=== PATIENT | female | born 1975 | race Caucasian/White ===

== ENCOUNTER 2023-12-22 11:53 | Emergency (ER) | payer MEDICAID ==
[~2023-12-22] VITALS: Ht 165.1 cm; Wt 82.5 kg
[2023-12-22 12:10] VITALS: BP 182/91; PULSE 89; RESP 18; O2SAT 98
[2023-12-22 14:12] LABS: HIV ANTIBODY 1&2 RAPID NON-REACTIVE (Neg)
[2023-12-22 14:41] LABS: BILIRUBIN,URINE NEGATIVE (Neg); CLARITY,URINE SLIGHTLY CLOUDY (Clear); COLOR,URINE YELLOW (Yellow); GLUCOSE, URINE NEGATIVE (Neg); KETONES,URINE NEGATIVE (Neg); LEUKOCYTE ESTERASE ,URINE NEGATIVE (Neg); NITRITES, URINE NEGATIVE (Neg); OCCULT BLOOD,URINE TRACE-INTACT (Neg); PROTEIN,URINE NEGATIVE (Neg); UROBILINOGEN,URINE 0.2 E.U/dL (0.2-1.0)
[2023-12-22 14:47] LABS: UA COLLECTION TYPE NON-SPECIFIED
[2023-12-22 14:48] LABS: HYALINE CASTS 0-3 /LPF (NEGATIVE); MUCUS STRANDS MANY /LPF (Neg); SQUAMOUS EPITHELIAL CELL,UR MANY /LPF (FEW)
[2023-12-22 14:49] LABS: BACTERIA,URINE FEW /HPF (Neg); WBC,URINE 0-4 /HPF (0-4)
[2023-12-22 14:50] LABS: TRANSITIONAL EPI CELLS,URINE FEW /HPF
[2023-12-22 18:48] VITALS: TEMP 97.8
[2023-12-24 11:30] LABS: HBSAG SCREEN Negative (Negative); HEP A AB, IGM Negative (Negative); HEP B CORE AB, IGM Negative (Negative); HEPATITIS C VIRUS ANTIBODY Non Reactive (Non Reactive)
[2023-12-24 18:06] LABS: CHLAMYDIA TRACHOMATIS, NAA Negative (Negative)
== END 2023-12-22 18:55 | disposition home or self-care (01) ==
LOC: ER 11:55
DX: Z11.3 Encounter for screening for infections with a predominantly sexual mode of transmission (principal)
CPT/HCPCS: 36415; 80074; 81001; 86703; 87491; 99283

== ENCOUNTER 2024-02-23 06:47 | Emergency (ER) | payer MEDICAID ==
[~2024-02-23] VITALS: Ht 165.1 cm; Wt 75.0 kg
[2024-02-23 07:13] LABS: BASOPHILS % (AUTO) 0.6 % (0-1); EOSINOPHILS # (AUTO) 0.2 X10'3 (0-0.9); EOSINOPHILS % (AUTO) 2.7 % (0-6); HEMATOCRIT 34.5 % (35.0-45.0); HEMOGLOBIN 11.7 g/dl (12.0-16.0); LYMPHOCYTES # (AUTO) 1.4 X10'3 (1.1-4.8); LYMPHOCYTES % (AUTO) 25.3 % (21-51); MEAN CORPUSCULAR HEMOGLOBIN 27.5 PG (27.0-31.0); MEAN CORPUSCULAR HGB CONC 33.9 g/dL (33.0-36.5); MEAN CORPUSCULAR VOLUME 81.2 FL (78-98); MEAN PLATELET VOLUME 7.1 FL (7.4-10.4); MONOCYTES # (AUTO) 0.5 X10'3 (0-0.9); NEUTROPHILS # (AUTO) 3.6 X10'3 (1.8-7.7); NEUTROPHILS % (AUTO) 63.4 % (42-75); PLATELET COUNT 298 X10'3 (140-440); RED BLOOD COUNT 4.25 X10'6 (4.20-5.60); RED CELL DISTRIBUTION WIDTH 14.5 % (11.5-14.5); WHITE BLOOD COUNT 5.7 X10'3 (4.5-11.0)
[2024-02-23] MEDS: ketorolac tromethamine 15mg/ml inj. IV ONE (07:26)
[2024-02-23 07:29] LABS: ALANINE AMINOTRANSFERASE 31 U/L (12-78); ALBUMIN 3.7 G/DL (3.4-5.0); ALKALINE PHOSPHATASE 53 IU/L (46-116); ANION GAP 8 (8-16); ASPARTATE AMINO TRANSFERASE 24 U/L (10-37); BILIRUBIN,TOTAL 0.2 MG/DL (0.1-1.0); BLOOD UREA NITROGEN 19 MG/DL (7-18); BUN/CREATININE RATIO 17.6 (10.0-20.0); CALCIUM 8.8 MG/DL (8.5-10.1); CHLORIDE 106 MMOL/L (99-107); CREATININE 1.08 MG/DL (0.40-0.90); GLUCOSE 103 MG/DL (70-104); LIPASE 40 U/L (16-77); POTASSIUM 3.1 MMOL/L (3.5-5.1); SODIUM 141 MMOL/L (135-145); TOTAL CARBON DIOXIDE 27.1 MMOL/L (24-32); TOTAL PROTEIN 7.3 G/DL (6.4-8.2); eCRCL 57 ML/MIN; eGFR 54 ML/MIN
[2024-02-23 08:41] LABS: BILIRUBIN,URINE SMALL (Neg); CLARITY,URINE SLIGHTLY CLOUDY (Clear); COLOR,URINE YELLOW (Yellow); GLUCOSE, URINE NEGATIVE (Neg); KETONES,URINE TRACE mg/dl (Neg); LEUKOCYTE ESTERASE ,URINE NEGATIVE (Neg); NITRITES, URINE POSITIVE (Neg); OCCULT BLOOD,URINE MODERATE (Neg); PH,URINE 5.5 (4.8-8.0); PROTEIN,URINE TRACE mg/dl (Neg)
[2024-02-23 08:43] LABS: URINE HCG NEGATIVE (NEG)
[2024-02-23 08:49] LABS: UA COLLECTION TYPE CLN CATCH MIDSTREAM
[2024-02-23 08:55] LABS: SQUAMOUS EPITHELIAL CELL,UR MANY /LPF (FEW)
[2024-02-23 08:59] LABS: RBC,URINE 0-2 /HPF (0-2)
[2024-02-23 09:03] LABS: BACTERIA,URINE 2+ /HPF (Neg)
[2024-02-23] MEDS ORDERED: AMOX-419 PO (10:05)
[2024-02-23 10:21] VITALS: BP 123/64; PULSE 72; RESP 15; TEMP 97.6; O2SAT 100
== END 2024-02-23 10:37 | disposition home or self-care (01) ==
LOC: ER 06:52
DX: Z11.3 Encounter for screening for infections with a predominantly sexual mode of transmission (principal); R10.84 Generalized abdominal pain
CPT/HCPCS: 36415; 74176; 80053; 81001; 81025; 83690; 85025; 96374; 99285; J1885

== ENCOUNTER 2024-03-01 17:15 | Inpatient (IN) | payer MEDICAID ==
[~2024-03-01] VITALS: Ht 165.1 cm; Wt 79.8 kg
[~2024-03-01 17:15] MED LIST: AMOX-419 PO
[2024-03-01] MEDS: HYDROcodone/acetaminophen 5mg/325mg tablet PO ONE (18:25)
[2024-03-01] MEDS: ondansetron/PF 4mg/2ml inj IV ONE (18:45)
[2024-03-01] MEDS: morphine 4 MG/ML inj SYRINge IV ONE ×2 (18:46→20:25)
[2024-03-01] MEDS: normal saline 1000ml 1,000 ML IV ONE (18:48)
[2024-03-01 18:54] LABS: URINE HCG NEGATIVE (NEG)
[2024-03-01 18:58] LABS: BILIRUBIN,URINE NEGATIVE (Neg); CLARITY,URINE SLIGHTLY CLOUDY (Clear); COLOR,URINE YELLOW (Yellow); GLUCOSE, URINE NEGATIVE (Neg); KETONES,URINE NEGATIVE (Neg); LEUKOCYTE ESTERASE ,URINE NEGATIVE (Neg); NITRITES, URINE NEGATIVE (Neg); OCCULT BLOOD,URINE NEGATIVE (Neg); PROTEIN,URINE NEGATIVE (Neg); UROBILINOGEN,URINE 0.2 E.U/dL (0.2-1.0)
[2024-03-01 19:06] LABS: BASOPHILS % (AUTO) 0.3 % (0-1); EOSINOPHILS # (AUTO) 0.2 X10'3 (0-0.9); EOSINOPHILS % (AUTO) 3.2 % (0-6); HEMATOCRIT 31.9 % (35.0-45.0); HEMOGLOBIN 10.6 g/dl (12.0-16.0); LYMPHOCYTES # (AUTO) 1.5 X10'3 (1.1-4.8); LYMPHOCYTES % (AUTO) 28.2 % (21-51); MEAN CORPUSCULAR HEMOGLOBIN 27.3 PG (27.0-31.0); MEAN CORPUSCULAR HGB CONC 33.2 g/dL (33.0-36.5); MEAN CORPUSCULAR VOLUME 82.2 FL (78-98); MONOCYTES # (AUTO) 0.3 X10'3 (0-0.9); MONOCYTES % (AUTO) 5.9 % (2-12); NEUTROPHILS # (AUTO) 3.2 X10'3 (1.8-7.7); NEUTROPHILS % (AUTO) 62.4 % (42-75); PLATELET COUNT 243 X10'3 (140-440); RED BLOOD COUNT 3.88 X10'6 (4.20-5.60); RED CELL DISTRIBUTION WIDTH 14.5 % (11.5-14.5); WHITE BLOOD COUNT 5.2 X10'3 (4.5-11.0)
[2024-03-01 19:13] LABS: UA COLLECTION TYPE NON-SPECIFIED
[2024-03-01 19:14] LABS: MUCUS STRANDS MANY /LPF (Neg); SQUAMOUS EPITHELIAL CELL,UR MANY /LPF (FEW)
[2024-03-01 19:16] LABS: WBC,URINE 0-4 /HPF (0-4)
[2024-03-01 19:17] LABS: RBC,URINE 0-2 /HPF (0-2)
[2024-03-01 19:18] LABS: BACTERIA,URINE FEW /HPF (Neg)
[2024-03-01 19:23] LABS: ALANINE AMINOTRANSFERASE 25 U/L (12-78); ALBUMIN 3.4 G/DL (3.4-5.0); ALKALINE PHOSPHATASE 43 IU/L (46-116); ANION GAP 7 (8-16); ASPARTATE AMINO TRANSFERASE 12 U/L (10-37); BILIRUBIN,TOTAL 0.2 MG/DL (0.1-1.0); BLOOD UREA NITROGEN 18 MG/DL (7-18); BUN/CREATININE RATIO 20.2 (10.0-20.0); CALCIUM 8.9 MG/DL (8.5-10.1); CHLORIDE 105 MMOL/L (99-107); CREATININE 0.89 MG/DL (0.40-0.90); GLUCOSE 99 MG/DL (70-104); LIPASE 38 U/L (16-77); SODIUM 142 MMOL/L (135-145); TOTAL CARBON DIOXIDE 30.4 MMOL/L (24-32); TOTAL PROTEIN 6.9 G/DL (6.4-8.2); eCRCL 70 ML/MIN; eGFR 68 ML/MIN
[2024-03-01 19:26] LABS: POTASSIUM 2.9 MMOL/L (3.5-5.1)
[2024-03-01] MEDS: CefTRIAXone/D5W-Rocephin 1gm 50 ML IV ONE (20:25)
[2024-03-01] MEDS ORDERED: NO HOME MEDS (20:30)
[2024-03-01] MEDS ORDERED: acetaminophen 325mg tablet PO PRN ×2 (21:20)
[2024-03-01] MEDS ORDERED: morphine 2 MG/ML inj. syringe IV PRN (21:20)
[2024-03-01] MEDS ORDERED: potassium Cl 20 mEq SR tablet PO PRN (21:20)
[2024-03-01] MEDS ORDERED: acetaminophen 650mg rectal suppository RC PRN (21:20)
[2024-03-01] MEDS ORDERED: ondansetron 4mg rapidly disintigrating tab PO PRN (21:20)
[2024-03-01] MEDS ORDERED: metoclopramide 5 mg/ml inj IV PRN (21:20)
[2024-03-01] MEDS ORDERED: mag hydrox/Alum hydrox/simeth 30ml oral suspension PO PRN (21:20)
[2024-03-01] MEDS ORDERED: magnesium 4gm in 100ml NS 100 ML IV PRN (21:20)
[2024-03-01] MEDS ORDERED: magnesium Cl slow-release 64mg tablet PO PRN (21:20)
[2024-03-01] MEDS ORDERED: magnesium 2GM in 50ml NS 50 ML IV PRN (21:20)
[2024-03-01 21:45] LABS: MAGNESIUM 1.9 MG/DL (1.5-2.4); PHOSPHORUS 3.1 MG/DL (2.3-4.5)
[2024-03-01] MEDS: normal saline 1000ml 1,000 ML IV SCH (21:51)
[2024-03-01 22:08] LABS: APTT 25 SECONDS (22-32); PROTHROMBIN TIME 11.1 SECONDS (9.0-12.0)
[2024-03-01] MEDS: potassium Cl 20 mEq SR tablet PO PRN (23:57)
[2024-03-02] VITALS (21 sets, daily range): BP systolic 107–153; BP diastolic 52–86; PULSE 50–85; RESP 11–20; TEMP 96.4–97.9; O2SAT 91–100
[2024-03-02] MEDS: potassium Cl 40MEQ/1/2NS 520ml 520 ML IV PRN (01:29)
[2024-03-02] MEDS: morphine 2 MG/ML inj. syringe IV PRN (01:34)
[2024-03-02 07:31] LABS: BASOPHILS % (AUTO) 0.2 % (0-1); EOSINOPHILS # (AUTO) 0.2 X10'3 (0-0.9); EOSINOPHILS % (AUTO) 3.2 % (0-6); HEMATOCRIT 29.7 % (35.0-45.0); HEMOGLOBIN 9.9 g/dl (12.0-16.0); LYMPHOCYTES # (AUTO) 1.6 X10'3 (1.1-4.8); LYMPHOCYTES % (AUTO) 30.1 % (21-51); MEAN CORPUSCULAR HEMOGLOBIN 27.5 PG (27.0-31.0); MEAN CORPUSCULAR HGB CONC 33.3 g/dL (33.0-36.5); MEAN CORPUSCULAR VOLUME 82.6 FL (78-98); MEAN PLATELET VOLUME 7.2 FL (7.4-10.4); MONOCYTES # (AUTO) 0.3 X10'3 (0-0.9); MONOCYTES % (AUTO) 6.2 % (2-12); NEUTROPHILS # (AUTO) 3.2 X10'3 (1.8-7.7); NEUTROPHILS % (AUTO) 60.3 % (42-75); PLATELET COUNT 208 X10'3 (140-440); RED CELL DISTRIBUTION WIDTH 14.6 % (11.5-14.5); WHITE BLOOD COUNT 5.2 X10'3 (4.5-11.0)
[2024-03-02] MEDS: docusate sod 100mg capsule PO SCH (07:33)
[2024-03-02] MEDS: K and/or MAG REPLACEMENT MC SCH (08:00)
[2024-03-02 08:09] LABS: ALANINE AMINOTRANSFERASE 25 U/L (12-78); ALBUMIN 2.8 G/DL (3.4-5.0); ALBUMIN/GLOBULIN RATIO 0.9 (1.1-1.5); ALKALINE PHOSPHATASE 36 IU/L (46-116); ANION GAP 4 (8-16); ASPARTATE AMINO TRANSFERASE 16 U/L (10-37); BILIRUBIN,TOTAL 0.2 MG/DL (0.1-1.0); BLOOD UREA NITROGEN 14 MG/DL (7-18); CALCIUM 8.2 MG/DL (8.5-10.1); CHLORIDE 109 MMOL/L (99-107); GLUCOSE 93 MG/DL (70-104); MAGNESIUM 1.8 MG/DL (1.5-2.4); PHOSPHORUS 2.6 MG/DL (2.3-4.5); SODIUM 142 MMOL/L (135-145); TOTAL CARBON DIOXIDE 28.9 MMOL/L (24-32); eCRCL 88 ML/MIN; eGFR 89 ML/MIN
[2024-03-02] MEDS: HYDROcodone/acetaminophen 10/325mg tab PO PRN (10:44)
[2024-03-02] MEDS: INDOCYANINE GREEN 25 MG/10 ML VIAL IV ONE (13:28)
[2024-03-02] MEDS ORDERED: meperidine/PF 25mg/ml syringe IV PRN ×2 (15:45)
[2024-03-02] MEDS ORDERED: proCHLORperazine 10 MG/2 ml inj IV PRN (15:45)
[2024-03-02] MEDS ORDERED: enalaprilat dihydrate 2.5mg/2ml vial IV PRN (15:45)
[2024-03-02] MEDS ORDERED: morphine 2 MG/ML inj. syringe IV PRN (15:45)
[2024-03-02] MEDS ORDERED: ringers solution, lacted 1,000 ML IV SCH (15:45)
[2024-03-02] MEDS ORDERED: labetalol 20mg/4ml (5mg/ml) syringe IV PRN (15:45)
[2024-03-02] MEDS ORDERED: sevoflurane 250ml liquid IH ONE (15:45)
[2024-03-02] MEDS ORDERED: ondansetron/PF 4mg/2ml inj IV PRN (15:45)
[2024-03-02] MEDS ORDERED: midazolam 1 mg/ML 2ml injection ONE (15:53)
[2024-03-02] MEDS ORDERED: fentaNYL/PF 50MCG/1 ML 2ML syringe ONE (15:53)
[2024-03-02] MEDS ORDERED: propofol inj 20 ML IV ONE (15:54)
[2024-03-02] MEDS ORDERED: LIDOcaine 2% (20mg/ml) 5ml vial ONE (15:54)
[2024-03-02] MEDS ORDERED: ondansetron/PF 4mg/2ml inj ONE (16:14)
[2024-03-02] MEDS ORDERED: ceFAZolin 1000mg inj ONE ×2 (16:14)
[2024-03-02] MEDS: BUPIVAcaine 0.25% w/Epi /PF 30ml vial IJ ONE (16:24)
[2024-03-02] MEDS ORDERED: rocuronium 10mg/ml inj IV ONE ×2 (16:59)
[2024-03-02] MEDS ORDERED: naloxone 0.4 mg/ml inj IV PRN (17:10)
[2024-03-02] MEDS ORDERED: ketorolac trometh. 30mg/ml inj. ONE (17:11)
[2024-03-02] MEDS: BUPIVAcaine 2.5mg/ml inj 50ml vial (contains preservative) ONE (17:18)
[2024-03-02] MEDS: LIDOcaine 1% (10mg/ml)w/preservative inj. 20ml MDV ONE (17:18)
[2024-03-02] MEDS: meperidine/PF 25mg/ml syringe IV PRN (17:32)
[2024-03-02] MEDS: morphine 4 MG/ML inj SYRINge IV PRN (17:49)
[2024-03-02] MEDS: sugammadex 200mg/2ml injection IV ONE (17:50)
[2024-03-02] MEDS: acetaminophen 1,000mg/100ml IV 100 ML IV ONE (18:23)
[2024-03-03] MEDS: HYDROcodone/acetaminophen 5mg/325mg tablet PO PRN (05:04)
[2024-03-03 06:37] VITALS: BP 128/65; PULSE 80; RESP 14; TEMP 98.9; O2SAT 96
[2024-03-03 06:51] LABS: BASOPHILS % (AUTO) 0 % (0-1); EOSINOPHILS % (AUTO) 0 % (0-6); HEMATOCRIT 31.3 % (35.0-45.0); HEMOGLOBIN 10.5 g/dl (12.0-16.0); LYMPHOCYTES # (AUTO) 0.5 X10'3 (1.1-4.8); LYMPHOCYTES % (AUTO) 7.6 % (21-51); MEAN CORPUSCULAR HEMOGLOBIN 27.7 PG (27.0-31.0); MEAN CORPUSCULAR HGB CONC 33.6 g/dL (33.0-36.5); MEAN CORPUSCULAR VOLUME 82.2 FL (78-98); MEAN PLATELET VOLUME 7.4 FL (7.4-10.4); MONOCYTES # (AUTO) 0.1 X10'3 (0-0.9); MONOCYTES % (AUTO) 0.9 % (2-12); NEUTROPHILS # (AUTO) 5.8 X10'3 (1.8-7.7); NEUTROPHILS % (AUTO) 91.5 % (42-75); PLATELET COUNT 227 X10'3 (140-440); RED BLOOD COUNT 3.81 X10'6 (4.20-5.60); RED CELL DISTRIBUTION WIDTH 14.7 % (11.5-14.5); WHITE BLOOD COUNT 6.4 X10'3 (4.5-11.0)
[2024-03-03 07:07] LABS: ALANINE AMINOTRANSFERASE 81 U/L (12-78); ALBUMIN 2.9 G/DL (3.4-5.0); ALBUMIN/GLOBULIN RATIO 0.8 (1.1-1.5); ALKALINE PHOSPHATASE 66 IU/L (46-116); ANION GAP 9 (8-16); ASPARTATE AMINO TRANSFERASE 75 U/L (10-37); BILIRUBIN,TOTAL 0.3 MG/DL (0.1-1.0); BLOOD UREA NITROGEN 13 MG/DL (7-18); BUN/CREATININE RATIO 16.7 (10.0-20.0); CHLORIDE 104 MMOL/L (99-107); CREATININE 0.78 MG/DL (0.40-0.90); GLUCOSE 119 MG/DL (70-104); MAGNESIUM 1.8 MG/DL (1.5-2.4); PHOSPHORUS 2.9 MG/DL (2.3-4.5); POTASSIUM 3.9 MMOL/L (3.5-5.1); SODIUM 138 MMOL/L (135-145); TOTAL CARBON DIOXIDE 24.9 MMOL/L (24-32); TOTAL PROTEIN 6.6 G/DL (6.4-8.2); eCRCL 79 ML/MIN; eGFR 79 ML/MIN
[2024-03-03 07:35] VITALS: RESP 14; O2SAT 96
[2024-03-03] MEDS: ondansetron/PF 4mg/2ml inj IV PRN (11:08)
[2024-03-03 11:45] VITALS: BP 137/63; RESP 20; O2SAT 96
[2024-03-03] MEDS: HYDROmorphone inj. 0.5 MG/0.5 ML DISP.SYRIN IV PRN (14:31)
[2024-03-03] MEDS: ketorolac trometh. 30mg/ml inj. IV ONE (14:43)
[2024-03-03 18:00] VITALS: BP 114/56; PULSE 58; RESP 16; TEMP 97.9; O2SAT 97
[2024-03-03 22:00] VITALS: BP 136/66; PULSE 64; RESP 16; TEMP 97.4; O2SAT 91
[2024-03-04 06:00] VITALS: BP 162/83; PULSE 82; RESP 17; TEMP 97.5; O2SAT 94
[2024-03-04 07:21] LABS: BASOPHILS % (AUTO) 0.1 % (0-1); EOSINOPHILS % (AUTO) 0.4 % (0-6); HEMATOCRIT 28.5 % (35.0-45.0); HEMOGLOBIN 9.4 g/dl (12.0-16.0); LYMPHOCYTES # (AUTO) 1.5 X10'3 (1.1-4.8); LYMPHOCYTES % (AUTO) 26.8 % (21-51); MEAN CORPUSCULAR HEMOGLOBIN 27.4 PG (27.0-31.0); MEAN CORPUSCULAR HGB CONC 33.1 g/dL (33.0-36.5); MEAN CORPUSCULAR VOLUME 82.8 FL (78-98); MEAN PLATELET VOLUME 7.6 FL (7.4-10.4); MONOCYTES # (AUTO) 0.5 X10'3 (0-0.9); MONOCYTES % (AUTO) 8.3 % (2-12); NEUTROPHILS # (AUTO) 3.7 X10'3 (1.8-7.7); NEUTROPHILS % (AUTO) 64.4 % (42-75); PLATELET COUNT 175 X10'3 (140-440); RED BLOOD COUNT 3.44 X10'6 (4.20-5.60); RED CELL DISTRIBUTION WIDTH 15.1 % (11.5-14.5); WHITE BLOOD COUNT 5.7 X10'3 (4.5-11.0)
[2024-03-04 07:40] LABS: ALANINE AMINOTRANSFERASE 92 U/L (12-78); ALBUMIN 2.7 G/DL (3.4-5.0); ALBUMIN/GLOBULIN RATIO 0.8 (1.1-1.5); ALKALINE PHOSPHATASE 57 IU/L (46-116); ANION GAP 5 (8-16); ASPARTATE AMINO TRANSFERASE 66 U/L (10-37); BILIRUBIN,TOTAL 0.2 MG/DL (0.1-1.0); BLOOD UREA NITROGEN 17 MG/DL (7-18); CALCIUM 8.7 MG/DL (8.5-10.1); CHLORIDE 109 MMOL/L (99-107); CREATININE 0.85 MG/DL (0.40-0.90); GLUCOSE 102 MG/DL (70-104); MAGNESIUM 1.8 MG/DL (1.5-2.4); PHOSPHORUS 3.1 MG/DL (2.3-4.5); POTASSIUM 3.9 MMOL/L (3.5-5.1); SODIUM 141 MMOL/L (135-145); TOTAL CARBON DIOXIDE 26.6 MMOL/L (24-32); TOTAL PROTEIN 6.1 G/DL (6.4-8.2); eCRCL 73 ML/MIN; eGFR 71 ML/MIN
[2024-03-04 08:00] VITALS: RESP 18; O2SAT 98
[2024-03-04 10:00] VITALS: BP 170/78; PULSE 76; RESP 17; TEMP 98.5; O2SAT 95
[2024-03-04] MEDS: magnesium hydroxide 30ml (MOM) UD suspension PO ONE (11:03)
[2024-03-04] MEDS: oxyCODONE/APAP 5-325mg tablet PO PRN (12:00)
[2024-03-04 18:00] VITALS: BP 151/92; PULSE 75; RESP 16; TEMP 97.7; O2SAT 98
[2024-03-04] MEDS: magnesium hydroxide 30ml (MOM) UD suspension PO PRN (19:57)
[2024-03-04 20:00] VITALS: RESP 16; O2SAT 97
[2024-03-04 22:00] VITALS: BP 134/62; PULSE 66; RESP 18; TEMP 98.1; O2SAT 96
[2024-03-05 05:45] VITALS: BP 159/70
[2024-03-05 06:00] VITALS: BP 163/78; PULSE 65; RESP 17; TEMP 98.5; O2SAT 97
[2024-03-05 06:15] LABS: BASOPHILS % (AUTO) 0.4 % (0-1); EOSINOPHILS # (AUTO) 0.1 X10'3 (0-0.9); EOSINOPHILS % (AUTO) 2.2 % (0-6); HEMATOCRIT 32.2 % (35.0-45.0); HEMOGLOBIN 10.7 g/dl (12.0-16.0); LYMPHOCYTES # (AUTO) 1.8 X10'3 (1.1-4.8); LYMPHOCYTES % (AUTO) 34.2 % (21-51); MEAN CORPUSCULAR HEMOGLOBIN 27.3 PG (27.0-31.0); MEAN CORPUSCULAR HGB CONC 33.3 g/dL (33.0-36.5); MEAN PLATELET VOLUME 7.2 FL (7.4-10.4); MONOCYTES # (AUTO) 0.4 X10'3 (0-0.9); NEUTROPHILS # (AUTO) 2.9 X10'3 (1.8-7.7); NEUTROPHILS % (AUTO) 56.2 % (42-75); PLATELET COUNT 259 X10'3 (140-440); RED BLOOD COUNT 3.92 X10'6 (4.20-5.60); WHITE BLOOD COUNT 5.2 X10'3 (4.5-11.0)
[2024-03-05 06:40] LABS: ALANINE AMINOTRANSFERASE 218 U/L (12-78); ALBUMIN 2.8 G/DL (3.4-5.0); ALBUMIN/GLOBULIN RATIO 0.7 (1.1-1.5); ALKALINE PHOSPHATASE 98 IU/L (46-116); ANION GAP 5 (8-16); ASPARTATE AMINO TRANSFERASE 202 U/L (10-37); BILIRUBIN,TOTAL 0.4 MG/DL (0.1-1.0); BLOOD UREA NITROGEN 12 MG/DL (7-18); BUN/CREATININE RATIO 17.6 (10.0-20.0); CHLORIDE 104 MMOL/L (99-107); CREATININE 0.68 MG/DL (0.40-0.90); GLUCOSE 96 MG/DL (70-104); MAGNESIUM 2.3 MG/DL (1.5-2.4); PHOSPHORUS 3.1 MG/DL (2.3-4.5); POTASSIUM 4.3 MMOL/L (3.5-5.1); SODIUM 140 MMOL/L (135-145); TOTAL CARBON DIOXIDE 30.9 MMOL/L (24-32); TOTAL PROTEIN 6.7 G/DL (6.4-8.2); eCRCL 91 ML/MIN; eGFR > 90 ML/MIN
[2024-03-05 09:57] VITALS: RESP 16
[2024-03-05 10:43] VITALS: BP 141/82; PULSE 70; RESP 18; TEMP 98.1; O2SAT 97
[2024-03-05] MEDS: bisacodyl 10mg suppository rectal RC STA (12:11)
[2024-03-05] MEDS: methylnaltrexone br 12mg/0.6ml inj***SubQ only SQ ONE (13:28)
[2024-03-05] MEDS ORDERED: LACT10SO78 PO (13:46)
[2024-03-05] MEDS ORDERED: CEPH250T PO (13:46)
[2024-03-05] MEDS ORDERED: LACT1CAP60 PO (13:46)
[2024-03-05] MEDS ORDERED: ACET650T58 PO (13:46)
[2024-03-05 14:01] VITALS: RESP 16
== END 2024-03-05 15:10 | disposition home or self-care (01) | DRG 263 ==
LOC: ER 17:16 → ED HOLD 21:27 → ORTHO 4S 03-02 00:05
PROVIDERS: ADMIT Surgery; ATTEND Internal Medicine
PROC: 8E0W4CZ Robotic Assisted Procedure of Trunk Region, Percutaneous Endoscopic Approach (ICD-10-PCS; 2024-03-02)
PROC: BF121ZZ Fluoroscopy of Gallbladder using Low Osmolar Contrast (ICD-10-PCS; 2024-03-02)
PROC: 0FT44ZZ Resection of Gallbladder, Percutaneous Endoscopic Approach (ICD-10-PCS; principal; 2024-03-02 15:45)
DX: K80.12 Calculus of gallbladder with acute and chronic cholecystitis without obstruction (principal); K76.89 Other specified diseases of liver; K56.7 Ileus, unspecified; E87.6 Hypokalemia; K91.89 Other postprocedural complications and disorders of digestive system; Y83.8 Other surgical procedures as the cause of abnormal reaction of the patient, or of later complication, without mention of misadventure at the time of the procedure; Y82.8 Other medical devices associated with adverse incidents; Y92.230 Patient room in hospital as the place of occurrence of the external cause
CPT/HCPCS: 36415; 76700; 80053; 81001; 81025; 83605; 83690; 83735; 84100; 84145; 85025; 85610; 85730; 87081; 93005; 96365; 96375; 99285; A4215; A4615; A4618; A7000; G0378; J0690; J0696; J1100; J1170; J1885; J2175; J2212; J2250; J2270; J2405; J2704; J2710; J3010; J3480; J3490; J7030; J7120; S0020

== ENCOUNTER 2025-02-22 15:13 | Emergency (ER) | payer MEDICAID, OTHER ==
[~2025-02-22] VITALS: Ht 165.1 cm; Wt 84.5 kg
[~2025-02-22 15:13] MED LIST changes: -AMOX-419 PO; +LACT10SO78 PO; +LACT1CAP60 PO; +NO HOME MEDS
[2025-02-22 15:17] VITALS: BP 152/46; PULSE 81; O2SAT 99
--- NOTE | 2025-02-22 15:34 | Physician Documentation ---
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 She states she did not think it was has bad as it is today as she was not experiencing as many symptoms. States that it was a half [place] half pit bull dog that bit her. Reports increased swelling pain and difficulty completing ADLs secondary to the pain Day of Onset: Feb 22, 2025 Tetanus within 5 years?: Yes Medication Reconciliation Allergies: Coded Allergies: No Known Allergies (Unverified , 03/01/24) Scheduled Lactobac Cmb #3/Fos/Pantethine (Probiotic & Acidophilus Cap), 1 CAP PO DAILY Lactulose (Lactulose), 30 ML PO Q12H Miscellaneous Medications Home Med List (No Home Medications), (Reported) Past Medical History Patient History: Patient reports no known family medical history. Alcohol Use: None Drug Use: other Review of Systems All Other Systems at this time: Reviewed and Negative ROS As stated above in the HPI, otherwise all systems are reviewed and negative. Physical Exam Vital Signs: Temperature: 98.1, Source: Temporal, Heart Rate: 81, Respiratory Rate: 18, BP: 152/46, Pulse Oximetry: 99, Weight: 84.500 Oxygen Flow Rate: 0 Physical Exam General: Alert, no apparent distress. Extremities: Normal range of motion small punctures on both the anterior and posterior of the proximal aspect of the right forearm. Notable developing ecchymosis w/minor swelling Neurologic: Oriented x4. Psychiatric: Normal mood and affect. Skin: Normal color, warm and dry. No edema, no ecchymosis. Progress Results/Orders Results/Orders Orders - LEONARDO STRANGE NP Elbow, Complete (3vw Min) (02/22/25 15:35) Ortho Orders (02/22/25 ) Completed Orders - LEONARDO STRANGE NP Amox Tr/Potassium Clavulanate (Augmentin (02/22/25 15:35) Elbow, Complete (3vw Min) (02/22/25 15:35) Hydrocodone/Apap 10/325 (Napa 10/325mg (02/22/25 16:15) Medications Received in ER Medications (Trade) Dose Ordered Sig/Abdon Route PRN Reason Start Time Stop Time Status Last Admin Dose Admin (Augmentin 875-125mg tablet) 1 tab ONCE ONCE PO 02/22/25 15:35 02/22/25 15:36 DC 02/22/25 16:10 1 TAB ([place] 10/325mg tab) 1 tab ONCE ONCE PO 02/22/25 16:15 02/22/25 16:16 DC 02/22/25 16:24 1 TAB Vital Signs 02/22/25 02/22/25 02/22/25 15:17 16:24 16:54 Temp 98.1 98.1 Pulse 81 Resp 18 16 B/P (MAP) 152/46 Pulse Ox 99 O2 Flow Rate 0 Medical Decision Making Findings This patient presents with suspected developing soft tissue infection secondary to dog bite. it does appear she has a minimally-displaced epicondyle fracture secondary to the dog bite force. To splint her with a long arm and start her on antibiotics to avoid any further infection concerns secondary to her dog bite Differential Dx:Considerations: Include: Abrasion, Allergic reaction, Anaphylaxis, Cellulitis, Contusion, Fracture, Hematoma, Insect envenomation, Laceration, Neurovascular injury, Punture wound, Retained foreign body, Urticaria, Other Departure Disposition: 01 HOME / SELF CARE / HOMELESS Impression: Primary Impression: Elbow fracture Additional Impression: Dog bite Discharge Instructions: Animal Bite, Adult Additional Instructions: Unfortunately it was discovered that you have a small fracture on your elbow secondary to your dog bite. Therefore I we splinted you and advise you to follow up with your worker's comp provider for further evaluation. Sure to take all of your antibiotics to avoid any infection Referrals: NO PRIMARY CARE PROVIDER (PCP) Signature Scribe Signature: b Attestation: Scribed for Leonardo Strange [facility] Director by Leonardo Carrasco NP . 02/22/25 18:34 LEONARDO STRANGE LOGGING ENGINEER Feb 22, 2025 15:34
--- NOTE | 2025-02-22 15:59 | RADIOLOGY REPORT ---
X-ray right elbow Technique: AP lateral and oblique views REASON FOR EXAM: dog bite Right INDICATION: dog bite Right FINDINGS: Thin curvilinear calcification adjacent to the distal medial humeral epicondyle. No foreig n body IMPRESSION: 1. Minimally displaced avulsion fracture distal medial humeral epicondyle
[2025-02-22] MEDS: amox tr/potassium clavulanate 875/125mg TAB PO ONE (16:10)
[2025-02-22 16:24] VITALS: RESP 16
[2025-02-22] MEDS: HYDROcodone/acetaminophen 10/325mg tab PO ONE (16:24)
[2025-02-22 16:54] VITALS: TEMP 98.1
== END 2025-02-22 16:55 | disposition home or self-care (01) ==
LOC: ER 15:14
DX: S42.441A Displaced fracture (avulsion) of medial epicondyle of right humerus, initial encounter for closed fracture (principal); W54.0XXA Bitten by dog, initial encounter; Y93.89 Activity, other specified; Y92.89 Other specified places as the place of occurrence of the external cause; Y99.8 Other external cause status
CPT/HCPCS: 29105; 73080; 99283; A4565; A6449